=== PATIENT | female | born 1985 | race Caucasian/White ===

== ENCOUNTER → 2018-08-21 | Outpatient (REF) | payer OTHER ==
[2018-08-21 19:50] LABS: INFLUENZA A AMPLIFICATION NEGATIVE (NEGATIVE); INFLUENZA B AMPLIFICATION NEGATIVE (NEGATIVE)
== END ==
LOC: M LAB REF 12:24
PROVIDERS: ATTEND Physician Assistant Medical
DX: J11.1 Influenza due to unidentified influenza virus with other respiratory manifestations (principal)

== ENCOUNTER 2019-02-15 14:52 | Emergency (ER) | payer OTHER ==
[~2019-02-15] VITALS: Ht 152.4 cm; Wt 45.5 kg
[2019-02-15] MEDS ORDERED: KETOROLAC TROMETHAMINE 10 MG TAB PO ONE (17:30)
[2019-02-15 17:56] LABS: BASO % 0.5 % (0.0-1.0); EOS # 0.1 10^3/uL (0.0-0.50); EOS % 0.8 % (0.0-3.0); HEMATOCRIT 40.2 % (36.0-47.0); HEMOGLOBIN 13.7 g/dl (12.0-15.5); LYMPH # 1.4 10^3/uL (1.5-4.5); LYMPH % 24.1 % (24.0-44.0); MEAN CORPUSCULAR HEMOGLOBIN 33.1 pg (27.0-33.0); MEAN CORPUSCULAR HGB CONC 34.1 g/dl (32.0-36.5); MEAN CORPUSCULAR VOLUME 97.1 fl (80.0-96.0); MONO # 0.6 10^3/uL (0.0-0.8); MONO % 10.8 % (0.0-5.0); NEUTROPHILS # 3.8 10^3/uL (1.8-7.7); NEUTROPHILS % 63.6 % (36.0-66.0); PLATELET COUNT, AUTOMATED 144 10^3/uL (150-450); RED BLOOD COUNT 4.14 10^6/uL (4.00-5.40); WHITE BLOOD COUNT 5.9 10^3/uL (4.0-10.0)
[2019-02-15 18:32] LABS: BLOOD UREA NITROGEN 8 MG/DL (7-18); CARBON DIOXIDE LEVEL 25 MEQ/L (21-32); CHLORIDE LEVEL 106 MEQ/L (98-107); CREATININE FOR GFR 0.65 MG/DL (0.55-1.30); GLOMERULAR FILTRATION RATE > 60.0 (>60); GLUCOSE, FASTING 82 MG/DL (70-100); POTASSIUM SERUM 4.4 MEQ/L (3.5-5.1); SODIUM LEVEL 139 MEQ/L (136-145)
[2019-02-15 18:33] LABS: ALBUMIN 3.9 GM/DL (3.2-5.2); ALT/SGPT 308 U/L (12-78); BILIRUBIN,DIRECT 0.3 MG/DL (0.0-0.2); BILIRUBIN,TOTAL 0.9 MG/DL (0.2-1.0); CALCIUM LEVEL 9.4 MG/DL (8.5-10.1); TOTAL PROTEIN 7.2 GM/DL (6.4-8.2)
[2019-02-15] MEDS ORDERED: ISOVUE-370 76% 100ML VIAL (Q9967) As Ordered ONE (18:56)
--- NOTE | 2019-02-15 20:51 | REPVR ---
EXAM: CT Angiography Chest With Contrast EXAM DATE/TIME: 02/15/2019 7:21 PM CLINICAL HISTORY: 33 years old, female; Chest pain; Additional info: Cp/elevated d-dminer TECHNIQUE: Imaging protocol: Axial computed tomographic angiography images of the chest with intravenous contrast using CT angiography protocol. Coronal and sagittal reformatted images were created and reviewed. 3D rendering: MIP reconstructed images were created and reviewed. Radiation optimization: All CT scans at this facility use at least one of these dose optimization techniques: automated exposure control; mA and/or kV adjustment per patient size (includes targeted exams where dose is matched to clinical indication); or iterative reconstruction. Contrast material: ISOVUE 370; Contrast volume: 100 ml; Contrast route: IV; COMPARISON: CR Chest, 2 view PA, Lat 02/15/2019 6:05 PM FINDINGS: Pulmonary arteries: Normal. No pulmonary emboli. Aorta: Unremarkable. No aortic aneurysm. No aortic dissection. Lungs: Unremarkable. No consolidation. No masses. Pleural space: Unremarkable. No pneumothorax. No pleural effusion. Heart: Unremarkable. No cardiomegaly. No pericardial effusion. Lymph nodes: Unremarkable. No enlarged lymph nodes. Bones/joints: Unremarkable. No acute fracture. Soft tissues: Unremarkable. IMPRESSION: No acute findings. Electronically signed by: Kailyn Pedroza On 02/15/2019 20:50:50 PM
--- NOTE | 2019-02-15 21:01 | REPVR ---
EXAM: CT Abdomen and Pelvis With Contrast EXAM DATE/TIME: 02/15/2019 7:21 PM CLINICAL HISTORY: 33 years old, female; Abdominal pain; Generalized; Additional info: Elevated liver enzymes/cp TECHNIQUE: Imaging protocol: Axial computed tomography images of the abdomen and pelvis with intravenous contrast. Coronal and sagittal reformatted images were created and reviewed. Radiation optimization: All CT scans at this facility use at least one of these dose optimization techniques: automated exposure control; mA and/or kV adjustment per patient size (includes targeted exams where dose is matched to clinical indication); or iterative reconstruction. Contrast material: ISOVUE 370; Contrast volume: 100 ml; Contrast route: IV; COMPARISON: No relevant prior studies available. FINDINGS: Liver: There is decreased attenuation of the liver consistent with hepatic steatosis. An 8mm nodular enhancing focus in the left lobe of the liver likely represents a hemangioma. Gallbladder and bile ducts: Normal. No calcified stones. No ductal dilation. Pancreas: Normal. No ductal dilation. Spleen: There is a 10 mm splenule. The spleen is unremarkable. Adrenals: The adrenal glands are normal. Kidneys and ureters: The kidneys are normal. Stomach and bowel: Normal. No obstruction. No mucosal thickening. Appendix: A normal appendix is visualized. Intraperitoneal space: Normal. No free air. No significant fluid collection. Vasculature: Normal. No abdominal aortic aneurysm. Lymph nodes: Normal. No enlarged lymph nodes. Bladder: Unremarkable as visualized. Reproductive: An intrauterine device is present in the uterus. There is a 2 cm cyst in the right ovary. Bones/joints: No acute fracture. No dislocation. Soft tissues: Unremarkable. Other findings: A common celiomesenteric trunk is noted, anatomical variant. IMPRESSION: 1. No acute findings in the abdomen or pelvis. 2. Suspect small hemagioma of the left hepatic lobe. 3. Hepatic steatosis. Electronically signed by: Kailyn Pedroza On 02/15/2019 21:01:42 PM
[2019-02-15] MEDS ORDERED: KETO2CR TOP (21:42)
[2019-02-15 21:53] VITALS: BP 128/81
--- NOTE | 2019-02-15 22:16 | ECGEPIP ---
[facility] - ED Test Date: 2019-02-15 Pat Name: VIELKA BERKOWITZ Department: Room: - Gender: Female [employer]: ct : 1985 Requested By: Jessy Joseph Order Number: [id number] Reading MD: Eligio Zayas Measurements Intervals [place] Rate: 76 P: 18 MT: 127 QRS: 61 QRSD: 88 T: 38 QT: 393 QTc: 443 Interpretive Statements SINUS RHYTHM Comparison tracing not on file Electronically Signed on 02-15-2019 22:16:25 EDT by Eligio Zayas
--- NOTE | 2019-02-16 07:39 | REP ---
REASON CHEST PAIN: COMPARISON: Frontal view of the chest obtained 11/26/2005, the latest prior. FINDINGS: The superior mediastinal structures are midline. The cardiac silhouette is unremarkable in size, shape, and position. The diaphragmatic surfaces of the lungs are regular, and the costophrenic angles are clear. The pulmonary anderson are clear. The imaged osseous structures are intact. IMPRESSION: There is no acute cardiopulmonary disease. Electronically Signed by John Hilario DO 02/16/2019 03:37 P
== END 2019-02-15 22:15 | disposition home or self-care (01) ==
LOC: M ED 14:52
DX: R07.89 Other chest pain (principal); R79.89 Other specified abnormal findings of blood chemistry; B36.0 Pityriasis versicolor; F41.9 Anxiety disorder, unspecified; Z97.5 Presence of (intrauterine) contraceptive device; F17.210 Nicotine dependence, cigarettes, uncomplicated
CPT/HCPCS: 36415; 71046; 71275; 74177; 80048; 80076; 81001; 84702; 85025; 85379; 87086; 93005; 99284; Q9967

== ENCOUNTER → 2022-09-19 | Outpatient (CLI) | payer OTHER ==
[~2022-09-19] MED LIST: KETO2CR TOP
[2022-09-19 17:00] LABS: HEMATOCRIT 36.3 % (36.0-47.0); HEMOGLOBIN 12.4 g/dl (12.0-15.5); MEAN CORPUSCULAR HEMOGLOBIN 30.4 pg (27.0-33.0); MEAN CORPUSCULAR HGB CONC 34.2 g/dl (32.0-36.5); PLATELET COUNT, AUTOMATED 177 10^3/uL (150-450); RED BLOOD COUNT 4.08 10^6/uL (4.00-5.40); WHITE BLOOD COUNT 9.2 10^3/uL (4.0-10.0)
[2022-09-19 17:29] LABS: URIC ACID 2.9 MG/DL (3.1-7.8)
[2022-09-19 17:31] LABS: LDH LACTATE DEHYDROGENASE 143 U/L (120-246); TOTAL PROTEIN,RANDOM URINE 20.6 MG/DL (0.0-14.0)
[2022-09-19 17:32] LABS: ALT/SGPT 29 U/L (7.0-40); AST/SGOT 21 U/L (<34); BILIRUBIN,TOTAL 0.7 MG/DL (0.3-1.2); CREATININE FOR GFR 0.51 MG/DL (0.55-1.30); GLOMERULAR FILTRATION RATE > 60.0 (>60)
[2022-09-19 17:35] LABS: CREATININE,RANDOM URINE 203.4 MG/DL
[2022-09-19 18:41] LABS: GC DNA AMPLIFICATION NEGATIVE (NEGATIVE)
[2022-09-19 19:48] LABS: HIV 1&2 SCREEN CENTAUR NEGATIVE (NEGATIVE)
[2022-09-19 20:23] LABS: HEPATITIS C VIRUS ABY INDEX < 0.0 INDEX (<0.8)
== END ==
LOC: M PLALAB 14:48
PROVIDERS: ATTEND Advanced Practice Midwife
DX: O09.521 Supervision of elderly multigravida, first trimester (principal)

== ENCOUNTER → 2022-10-19 | Outpatient (REF) | payer OTHER ==
[2022-10-19 19:53] LABS: AMORPHOUS SEDIMENT SMALL (NEGATIVE); APPEARANCE, URINE HAZY (CLEAR); BACTERIA, URINE AUTO NEGATIVE (NEGATIVE); BILIRUBIN, URINE AUTO NEGATIVE (NEGATIVE); BLOOD, URINE BLOOD NEGATIVE (NEGATIVE); COLOR, URINE YELLOW (YELLOW); GLUCOSE, URINE (UA) AUTO NEGATIVE (NEGATIVE); KETONE, URINE AUTO NEGATIVE (NEGATIVE); LEUKOCYTE ESTERASE, URINE AUTO 3+ (NEGATIVE); MUCUS, URINE SMALL (NEGATIVE); NITRITE, URINE AUTO NEGATIVE (NEGATIVE); PROTEIN, URINE AUTO NEGATIVE (NEGATIVE); RBC, URINE AUTO 3 /HPF (0-3); SQUAMOUS EPITHELIAL CELL UR AU 5 /HPF (0-6); WBC, URINE AUTO 7 /HPF (0-3)
== END ==
LOC: M LAB REF 19:33
PROVIDERS: ATTEND Physician Assistant Medical
DX: N39.0 Urinary tract infection, site not specified (principal)

== ENCOUNTER → 2022-10-27 | Outpatient (CLI) | payer OTHER | LOC: M PLALAB 10:07 | PROVIDERS: ATTEND Obstetrics & Gynecology | DX: O09.521 Supervision of elderly multigravida, first trimester (principal); Z3A.00 Weeks of gestation of pregnancy not specified ==

== ENCOUNTER → 2022-12-17 | Outpatient (CLI) | payer OTHER | LOC: M WHC 09:22 | PROVIDERS: ATTEND Obstetrics & Gynecology | DX: O09.522 Supervision of elderly multigravida, second trimester (principal); Z3A.19 19 weeks gestation of pregnancy ==

== ENCOUNTER → 2023-02-09 | Outpatient (CLI) | payer OTHER | LOC: M WHC 11:38 | PROVIDERS: ATTEND Obstetrics & Gynecology | DX: Z36.2 Encounter for other antenatal screening follow-up (principal); Z3A.28 28 weeks gestation of pregnancy ==

== ENCOUNTER → 2023-03-02 | Outpatient (CLI) | payer OTHER ==
[2023-03-02 15:06] LABS: HEMATOCRIT 31.3 % (36.0-47.0); HEMOGLOBIN 10.2 g/dl (12.0-15.5); MEAN CORPUSCULAR HEMOGLOBIN 29.7 pg (27.0-33.0); MEAN CORPUSCULAR HGB CONC 32.6 g/dl (32.0-36.5); MEAN CORPUSCULAR VOLUME 91.3 fl (80.0-96.0); PLATELET COUNT, AUTOMATED 144 10^3/uL (150-450); RED BLOOD COUNT 3.43 10^6/uL (4.00-5.40); WHITE BLOOD COUNT 9.4 10^3/uL (4.0-10.0)
[2023-03-02 16:29] LABS: GC DNA AMPLIFICATION NEGATIVE (NEGATIVE)
== END ==
LOC: M PLALAB 08:48
PROVIDERS: ATTEND Obstetrics & Gynecology
DX: Z34.92 Encounter for supervision of normal pregnancy, unspecified, second trimester (principal)

== ENCOUNTER → 2023-04-07 | Outpatient (REF) | payer OTHER ==
[~2023-04-07] MED LIST changes: +COLA100C5 PO; +CYCL5TAB PO; +FERR325T3 PO; +FLINCHW2 PO; +IBUP-1022 PO; +IBUP1TAB6 PO; +LIDO5TD TOP; +NIFE1TAB52 PO; +OMEP-173 PO; +OMEP1CAP73 PO; +PAXI20TA30 PO
== END ==
LOC: M SFHCWAGY 17:28
PROVIDERS: ATTEND Specialist
DX: Z36.85 Encounter for antenatal screening for Streptococcus B (principal)

== ENCOUNTER → 2023-04-13 | Outpatient (CLI) | payer OTHER ==
[~2023-04-13] MED LIST changes: -COLA100C5 PO; -CYCL5TAB PO; -FERR325T3 PO; -FLINCHW2 PO; -IBUP-1022 PO; -IBUP1TAB6 PO; -LIDO5TD TOP; -NIFE1TAB52 PO; -OMEP-173 PO; -OMEP1CAP73 PO; -PAXI20TA30 PO
[2023-04-13 16:00] LABS: HEMATOCRIT 35.9 % (36.0-47.0); HEMOGLOBIN 11.8 g/dl (12.0-15.5); MEAN CORPUSCULAR HEMOGLOBIN 30.3 pg (27.0-33.0); MEAN CORPUSCULAR HGB CONC 32.9 g/dl (32.0-36.5); MEAN CORPUSCULAR VOLUME 92.1 fl (80.0-96.0); PLATELET COUNT, AUTOMATED 122 10^3/uL (150-450); WHITE BLOOD COUNT 9.2 10^3/uL (4.0-10.0)
== END ==
LOC: M PLALAB 13:31
PROVIDERS: ATTEND Specialist
DX: Z34.83 Encounter for supervision of other normal pregnancy, third trimester (principal)

== ENCOUNTER 2023-04-28 19:16 | Observation (INO) | payer OTHER ==
[~2023-04-28] VITALS: Ht 152.4 cm; Wt 58.6 kg
[~2023-04-28 19:16] MED LIST changes: +COLA100C5 PO; +FERR325T3 PO; +IBUP-1022 PO; +OMEP-173 PO
[2023-04-28] MEDS ORDERED: LABETALOL 100MG/20ML VIAL IV STA ×2 (20:23→21:16)
[2023-04-28 20:34] LABS: BASO % 0.3 % (0.0-1.0); EOS # 0.1 10^3/uL (0.0-0.5); EOS % 0.8 % (0.0-3.0); HEMATOCRIT 33.7 % (36.0-47.0); HEMOGLOBIN 11.5 g/dl (12.0-15.5); LYMPH # 1.8 10^3/uL (1.5-5.0); MEAN CORPUSCULAR HEMOGLOBIN 30.6 pg (27.0-33.0); MEAN CORPUSCULAR HGB CONC 34.1 g/dl (32.0-36.5); MEAN CORPUSCULAR VOLUME 89.6 fl (80.0-96.0); MONO # 0.8 10^3/uL (0.0-0.8); MONO % 10.2 % (2.0-8.0); NEUTROPHILS # 4.9 10^3/uL (1.5-8.5); PLATELET COUNT, AUTOMATED 158 10^3/uL (150-450); RED BLOOD COUNT 3.76 10^6/uL (4.00-5.40); WHITE BLOOD COUNT 7.7 10^3/uL (4.0-10.0)
[2023-04-28 20:36] LABS: APPEARANCE, URINE CLEAR (CLEAR); BACTERIA, URINE AUTO NEGATIVE (NEGATIVE); BILIRUBIN, URINE AUTO NEGATIVE (NEGATIVE); BLOOD, URINE BLOOD 1+ (NEGATIVE); COLOR, URINE STRAW (YELLOW); GLUCOSE, URINE (UA) AUTO NEGATIVE (NEGATIVE); KETONE, URINE AUTO NEGATIVE (NEGATIVE); LEUKOCYTE ESTERASE, URINE AUTO NEGATIVE (NEGATIVE); NITRITE, URINE AUTO NEGATIVE (NEGATIVE); PROTEIN, URINE AUTO NEGATIVE (NEGATIVE); RBC, URINE AUTO 1 /HPF (0-3); SPECIFIC GRAVITY URINE AUTO 1.006 (1.002-1.035); SQUAMOUS EPITHELIAL CELL UR AU 0 /HPF (0-6); UROBILINOGEN, URINE AUTO 0.2 mg/dL (0.0-2.0); WBC, URINE AUTO 0 /HPF (0-3)
[2023-04-28 20:46] LABS: INR 1.01
[2023-04-28 20:47] LABS: PARTIAL THROMBOPLASTIN TIME 25.9 SECONDS (24.8-34.2)
[2023-04-28 21:40] LABS: ALBUMIN 3.2 G/DL (3.2-5.2); ALKALINE PHOSPHATASE 132 U/L (46-116); ALT/SGPT 24 U/L (7.0-40); AST/SGOT 17 U/L (<34); BILIRUBIN,DIRECT 0.1 MG/DL (<0.4); BILIRUBIN,TOTAL 0.5 MG/DL (0.3-1.2); BLOOD UREA NITROGEN 9 MG/DL (9-23); CALCIUM LEVEL 8.5 MG/DL (8.5-10.1); CARBON DIOXIDE LEVEL 23 MMOL/L (20-31); CHLORIDE LEVEL 105 MMOL/L (98-107); CREATININE FOR GFR 0.54 MG/DL (0.55-1.30); GLOMERULAR FILTRATION RATE > 60.0 (>60); GLUCOSE, FASTING 92 MG/DL (60-100); MAGNESIUM LEVEL 1.8 MG/DL (1.8-2.4); POTASSIUM SERUM 4.1 MMOL/L (3.5-5.1); SODIUM LEVEL 140 MMOL/L (136-145); TOTAL PROTEIN 6.5 G/DL (5.7-8.2)
[2023-04-28] MEDS ORDERED: ACETAMINOPHEN 325 MG TAB PO ONE (21:45)
[2023-04-28] MEDS ORDERED: KETOROLAC 30 MG/ML 1ML VIAL IV ONE (21:45)
[2023-04-28] MEDS ORDERED: NIFEdipine 10 MG CAP PO STA (22:23)
[2023-04-28 22:35] VITALS: BP 160/100
[2023-04-29] VITALS (10 sets, daily range): BP systolic 129–163; BP diastolic 69–103; TEMP 98.2–98.8; O2SAT 98
[2023-04-29] MEDS: ACETAMINOPHEN TAB 650MG DOSE (2X325MG) PO PRN ×5 (01:57→20:58)
[2023-04-29] MEDS ORDERED: IBUP1TAB6 PO (02:27)
[2023-04-29] MEDS ORDERED: CYCL5TAB PO (02:27)
[2023-04-29] MEDS ORDERED: LIDO5TD TOP (02:27)
[2023-04-29] MEDS ORDERED: OMEP1CAP73 PO (02:27)
[2023-04-29] MEDS ORDERED: FLINCHW2 PO (02:27)
[2023-04-29] MEDS ORDERED: HOME MED LIST COMPLETE! XX SCH (02:30)
[2023-04-29] MEDS: IBUPROFEN 800 MG TAB PO PRN ×3 (08:13→23:59)
[2023-04-29] MEDS: NIFEdipine 30MG XL TAB PO SCH (16:59)
[2023-04-30] VITALS: BP 144/91; TEMP 98.6; O2SAT 97
[2023-04-30] MEDS: ACETAMINOPHEN TAB 650MG DOSE (2X325MG) PO PRN ×3 (00:55→11:42)
[2023-04-30 04:00] VITALS: BP 119/71; TEMP 96.9; O2SAT 97
[2023-04-30 08:00] VITALS: BP 130/68; TEMP 98.8; O2SAT 98
[2023-04-30] MEDS: IBUPROFEN 800 MG TAB PO PRN (08:24)
[2023-04-30] MEDS: NIFEdipine 30MG XL TAB PO SCH (08:24)
[2023-04-30 13:20] VITALS: BP 138/84; TEMP 98.9; O2SAT 97
[2023-04-30] MEDS ORDERED: NIFE1TAB52 PO (14:25)
[2023-04-30] MEDS ORDERED: PAXI20TA30 PO (14:38)
[2023-05-02 18:57] LABS: URIC ACID 3.6 MG/DL (3.1-7.8)
== END 2023-04-30 15:14 | disposition home or self-care (01) ==
LOC: M ED 19:16 → M OBS 22:28 → M PED 04-29 01:00
PROVIDERS: ADMIT Specialist; ATTEND Specialist
DX: O16.5 Unspecified maternal hypertension, complicating the puerperium (principal); R60.0 Localized edema; Z79.899 Other long term (current) drug therapy
CPT/HCPCS: 36415; 70450; 71045; 80048; 80076; 81001; 83735; 84550; 85025; 85384; 85610; 85730; 86850; 86900; 86901; 87635; 93005; 93041; 94760; 96374; 96375; 96376; 99285; J1885; J1920

== ENCOUNTER → 2024-12-05 | Outpatient (REF) | payer MEDICAID, OTHER ==
[~2024-12-05] MED LIST changes: +CYCL5TAB4 PO; +FLINCHW2 PO; +IBUP1TAB6 PO; +LIDO5TD TOP; +NIFE1TAB52 PO; +OMEP1CAP73 PO; +PAXI20TA30 PO
[2024-12-05 21:06] LABS: APPEARANCE, URINE HAZY (CLEAR); BACTERIA, URINE AUTO NEGATIVE (NEGATIVE); BILIRUBIN, URINE AUTO NEGATIVE (NEGATIVE); BLOOD, URINE BLOOD NEGATIVE (NEGATIVE); COLOR, URINE YELLOW (YELLOW); GLUCOSE, URINE (UA) AUTO NEGATIVE (NEGATIVE); KETONE, URINE AUTO NEGATIVE (NEGATIVE); LEUKOCYTE ESTERASE, URINE AUTO 2+ (NEGATIVE); MUCUS, URINE SMALL (NEGATIVE); NITRITE, URINE AUTO NEGATIVE (NEGATIVE); PROTEIN, URINE AUTO 1+ mg/dL (NEGATIVE); RBC, URINE AUTO 1 /HPF (0-3); SPECIFIC GRAVITY URINE AUTO 1.032 (1.002-1.035); SQUAMOUS EPITHELIAL CELL UR AU 6 /HPF (0-6); WBC, URINE AUTO 52 /HPF (0-3)
== END ==
LOC: M LAB REF 20:43
PROVIDERS: ATTEND Physician Assistant Medical
DX: N39.0 Urinary tract infection, site not specified (principal)

== ENCOUNTER → 2025-02-16 | Outpatient (REF) | payer OTHER | LOC: M LAB REF 17:22 | PROVIDERS: ATTEND Physician Assistant | DX: B34.9 Viral infection, unspecified (principal) ==

== ENCOUNTER → 2025-08-14 | Outpatient (REF) | payer OTHER ==
[~2025-08-14] MED LIST changes: -IBUP-1022 PO; -IBUP1TAB6 PO; +IBUP600T42 PO; +SFHIBU600 PO
== END ==
LOC: M LAB REF 16:54
PROVIDERS: ATTEND Physician Assistant Medical
DX: B34.9 Viral infection, unspecified (principal)